=== PATIENT | female | born 1995 | race Caucasian/White ===

== ENCOUNTER 2016-10-15 10:21 | Emergency (ER) | payer OTHER ==
[~2016-10-15] VITALS: Ht 165.1 cm; Wt 72.5 kg
[~2016-10-15 10:21] MED LIST: CLIN1CAP6 PO; GENECHW PO
[2016-10-15 10:23] VITALS: BP 152/80; PULSE 102; RESP 24; TEMP 98.4; O2SAT 97
--- NOTE | 2016-10-15 11:04 | PD ---
HPI Chief Complaint: Educational Speech Language Clinician Problem/Complaint Time Seen by Provider: 10:57 Travel History International Travel<30 days: No Contact w/Intl Traveler<30days: No Traveled to known affect area: No History of Present Illness HPI 20-year-old female here for evaluation of vaginal bleeding and pelvic pain. Symptoms started this morning around 5:00. She describes heavy vaginal bleeding and intermittent pelvic cramping. She reports that she is on control, and does not believe she is . She has never been in the past. No history of bleeding disorder. PFSH Past Medical History Hx Anticoagulant Therapy: No Cardiovascular Problems: No Chemotherapy: No Cerebrovascular Accident: No Diabetes: No Diminished Hearing: No Respiratory: No Immunizations Current: Yes : 0 Past Surgical History Hysterectomy: No Social History Alcohol Use: No Tobacco Use: No Substance Use: No (PT DENIES) Allergies-Medications (Allergen,Severity, Reaction): Coded Allergies: Amoxicillin (Verified Allergy, Severe, Hives, 10/15/16) Reported Meds & Prescriptions Reported Meds & Active Scripts Active Review of Systems Except as stated in HPI: all other systems reviewed are Neg Physical Exam Narrative GENERAL: Well-developed, well-nourished, comfortable, no acute distress. SKIN: Focused skin assessment warm/dry. No pallor. HEAD: Atraumatic. Normocephalic. EYES: Pupils equal and round. No scleral icterus. No injection or drainage. ENT: Mucous membranes pink and moist. CARDIOVASCULAR: Regular rate and rhythm. RESPIRATORY: No accessory muscle use. Clear to auscultation. Breath sounds equal bilaterally. GASTROINTESTINAL: Abdomen soft, nondistended. Mild suprapubic tenderness without peritoneal signs. Rest of abdomen is soft and nontender. MUSCULOSKELETAL: No obvious deformities. No clubbing. No cyanosis. No edema. NEUROLOGICAL: Awake and alert. No obvious cranial nerve deficits. Motor grossly within normal limits. Normal speech. PSYCHIATRIC: Appropriate mood and affect; insight and judgment normal. Data Data Last Documented VS Vital Signs Date Time Temp Pulse Resp B/P Pulse Ox O2 Delivery O2 Flow Rate FiO2 10/15/16 14:35 89 18 131/67 99 Room Air 10/15/16 10:23 98.4 Orders Beta Hcg (Quant/Titer) (10/15/16 11:00) Complete Blood Count With Diff (10/15/16 11:00) Comprehensive Metabolic Panel (10/15/16 11:00) Type And Screen (10/15/16 11:00) Ed Urine Pregnancytest Poc (10/15/16 11:00) Prothrombin Time / Inr (Pt) (10/15/16 11:00) Act Partial Throm Time (Ptt) (10/15/16 11:00) Morphine Inj (Morphine Inj) (10/15/16 11:15) Ondansetron Inj (Zofran Inj) (10/15/16 11:15) Us Pelvis (Ques Pr/Ect)W Trans (10/15/16 ) Morphine Inj (Morphine Inj) (10/15/16 15:15) Labs Laboratory Tests Test 10/15/16 11:05 White Blood Count 10.6 TH/MM3 Red Blood Count 4.52 MIL/MM3 Hemoglobin 12.7 GM/DL Hematocrit 38.0 % Mean Corpuscular Volume 84.1 FL Mean Corpuscular Hemoglobin 28.2 PG Mean Corpuscular Hemoglobin 33.5 % Concent Red Cell Distribution Width 13.8 % Platelet Count 336 TH/MM3 Mean Platelet Volume 7.8 FL Neutrophils (%) (Auto) 66.7 % Lymphocytes (%) (Auto) 24.1 % Monocytes (%) (Auto) 8.0 % Eosinophils (%) (Auto) 0.8 % Basophils (%) (Auto) 0.4 % Neutrophils # (Auto) 7.0 TH/MM3 Lymphocytes # (Auto) 2.5 TH/MM3 Monocytes # (Auto) 0.8 TH/MM3 Eosinophils # (Auto) 0.1 TH/MM3 Basophils # (Auto) 0.0 TH/MM3 CBC Comment DIFF FINAL Differential Comment Prothrombin Time 10.3 SEC Prothromb Time International 0.9 RATIO Ratio Activated Partial 22.6 SEC Thromboplast Time Sodium Level 141 MEQ/L Potassium Level 3.5 MEQ/L Chloride Level 105 MEQ/L Carbon Dioxide Level 25.4 MEQ/L Anion Gap 11 MEQ/L Blood Urea Nitrogen 8 MG/DL Creatinine 0.65 MG/DL Estimat Glomerular Filtration 114 ML/MIN Rate Random Glucose 100 MG/DL Calcium Level 8.1 MG/DL Total Bilirubin 0.3 MG/DL Aspartate Amino Transf 15 U/L (AST/SGOT) Alanine Aminotransferase 18 U/L (ALT/SGPT) Alkaline Phosphatase 70 U/L Total Protein 6.8 GM/DL Albumin 3.2 GM/DL Human Chorionic Gonadotropin, 475 MIU/ML Quant Blood Type A POSITIVE Antibody Screen NEGATIVE Blood Bank Comment MDM Medical Decision Making Medical Screen Exam Complete: Yes Emergency Medical Condition: Yes Differential Diagnosis Spontaneous , ectopic , menstrual period, anemia, menorrhagia Narrative Course Vital signs reviewed. CBC is unremarkable. CMP is unremarkable. Coags are normal. Blood type is A+. Beta hCG is 475. Pelvic ultrasound: CONCLUSION: Cystic area likely representing gestational sac is seen in the lower uterine segment/cervix. No pole or yolk sac. Findings likely represent a failed intrauterine . Ovaries within normal limits. Patient was made aware of all findings. She is resting comfortably. She has an furniture upholstery mechanic with whom she can follow-up with as an outpatient. All questions were answered, and the patient was made aware that this is most likely a miscarriage. She is stable for discharge home with outpatient follow- up. She was informed on when to return to the emergency department. She verbalizes understanding and agreement with plan. Diagnosis Primary Impression: First trimester bleeding Referrals: [facility] 3 days Additional Instructions: Follow-up with your CLERICAL SUPERVISOR doctor this week. Return to the emergency department for worsening symptoms or any other concerns as discussed. Scripts Tramadol 50 Mg Tab50 Mg PO Q8H PRN (PAIN) #10 TAB Ref 0 Prov:Chris Sol MD 10/15/16 Disposition: 01 DISCHARGE HOME Condition: Stable Chris Sol MD October 15, 2016 11:04
[2016-10-15] MEDS ORDERED: ONDANSETRON HCL 4 MG/2 ML VIAL IV PUSH ONE (11:15)
[2016-10-15] MEDS ORDERED: MORPHINE SULFATE 4 MG/ML INJ IV PUSH ONE ×2 (11:15→15:15)
[2016-10-15 11:29] LABS: BASOPHIL % 0.4 % (0.0-2.0); EOSINOPHIL # 0.1 TH/MM3 (0-0.4); EOSINOPHIL % 0.8 % (0.0-4.0); HEMO FLAGS DIFF FINAL; LYMPH % 24.1 % (9.0-44.0); LYMPHOCYTE # 2.5 TH/MM3 (1.0-4.8); MEAN CELL VOLUME 84.1 FL (80.0-100.0); MEAN CORPUSCULAR HEMOGLOBIN 28.2 PG (27.0-34.0); MEAN CORPUSCULAR HGB CONC 33.5 % (32.0-36.0); NEUT % 66.7 % (16.0-70.0); PLATELET COUNT 336 TH/MM3 (150-450); RED BLOOD COUNT 4.52 MIL/MM3 (4.00-5.30); RED CELL DISTRIBUTION WIDTH 13.8 % (11.6-17.2); WHITE BLOOD COUNT 10.6 TH/MM3 (4.0-11.0)
[2016-10-15 11:34] LABS: APTT (PATIENT) 22.6 SEC (24.3-30.1); INTERNATIONAL NORMALIZED RATIO 0.9 RATIO; PROTHROMBIN TIME - PATIENT 10.3 SEC (9.8-11.6)
[2016-10-15 11:43] LABS: ALT (GPT) 18 U/L (10-53); ANION GAP 11 MEQ/L (5-15); AST (GOT) 15 U/L (15-37); BICARBONATE 25.4 MEQ/L (21.0-32.0); BLOOD UREA NITROGEN 8 MG/DL (7-18); CHLORIDE 105 MEQ/L (98-107); GLOMERULAR FILTRATION RATE 114 ML/MIN (>89); POTASSIUM 3.5 MEQ/L (3.5-5.1); SODIUM (NA) 141 MEQ/L (136-145)
[2016-10-15 11:47] LABS: ALKALINE PHOSPHATASE 70 U/L (45-117); BETA HCG QUANT 475 MIU/ML (0-5); TOTAL BILIRUBIN ADULT 0.3 MG/DL (0.2-1.0)
[2016-10-15 14:35] VITALS: BP 131/67; PULSE 89; RESP 18; O2SAT 99
--- NOTE | 2016-10-15 14:42 | RADRPT ---
EXAM DATE/TIME: 10/15/2016 13:01 [facility] COMPARISON: No previous studies available for comparison. INDICATIONS : Pelvic pain and heavy bleeding. LAB(S): Beta-hC MEDICAL HISTORY : . ADHD. Depression. Anxiety. Previous suicide attempt. SURGICAL HISTORY : None. ENCOUNTER: Initial ACUITY: 1 day PAIN SCORE: 6/10 LOCATION: Bilateral pelvis MEASUREMENTS: UTERUS: 10.2 x 4.6 x 5.0 cm ENDOMETRIAL STRIPE: 17 mm RIGHT OVARY: 2.2 x 1.3 x 1.3 cm LEFT OVARY: 2.9 x 2.3 x 2.4 cm FREE FLUID: Yes posterior cul de sac CROWN RUMP LENGTH: Nonvisualized = WKS DAYS FHR: Nonvisualized BPM FINDINGS: UTERUS: Cystic area indicating possible gestational sac is seen within the lower uterine segment/cervix. By m david sac diameter gestational age of would be estimated at 6 weeks 6 days. pole is not identifie d. Yolk sac is not identified. Heterogeneous endometrial stripe in the fundus. RIGHT OVARY: Ovary contains no mass or significant cystic lesion. LEFT OVARY: Ovary contains no mass or significant cystic lesion. MISCELLANEOUS: Trace free fluid. CONCLUSION: Cystic area likely representing gestational sac is seen in the lower uterine segment/cervix. No pole or yolk sac. Findings likely represent a failed intrauterine . Ovaries within normal l imits. Kyle Nuñez MD on October 15, 2016 at 14:38 Board Certified Radiologist. This report was verified electronically.
[2016-10-15] MEDS ORDERED: TRAM50TA PO (15:08)
[2016-10-15] MEDS ORDERED: HYDR1CAP30 PO (15:22)
[2016-10-15] MEDS ORDERED: GENECHW CHEW (15:22)
[2016-10-15] MEDS ORDERED: PAXI20TA PO (15:22)
== END 2016-10-15 15:37 | disposition home or self-care (01) ==
LOC: NEPD 10:21
DX: O20.9 Hemorrhage in early pregnancy, unspecified (principal); Z3A.00 Weeks of gestation of pregnancy not specified
CPT/HCPCS: 76700; 76817; 80053; 84702; 84703; 85025; 85610; 85730; 86850; 86900; 86901; 96374; 96375; 96376; 99284; J2270; J2405

== ENCOUNTER 2017-04-19 14:16 | Emergency (ER) | payer OTHER ==
[~2017-04-19 14:16] MED LIST changes: -CLIN1CAP6 PO; +GENECHW CHEW; -GENECHW PO; +HYDR1CAP30 PO; +PAXI20TA PO; +TRAM50TA PO
--- NOTE | 2017-04-19 15:50 | PD ---
HPI Chief Complaint cramping Date Seen: Apr 19, 2017 Time Seen: 14:38 Travel History International Travel<30 Days: No Contact w/Intl Traveler<30Days: No Known Affected Area: No History of Present Illness HPI Pt is a 21y/o @ 17.6wks. She has PNC with [facility]is Jimenez. She presents today for abdominal cramping. She reports that it started 3d ago and feels like menstrual cramps. She denies any LOF or VB. She is starting to feel FM. She has a h/o SAB earlier this year. She has not had an US at all this . Weeks Gestation: 17 Para: 0 : 2 Last Menstrual Period: Apr 19, 2017 History Past Medical History Narrative Medical sinus congestion with anxiety (no meds) Obstetric History Obstetric History SAB x1 Past Surgical History Surgical History: No Previous Surgery Family History Family History: Negative Social History Alcohol Use: No Tobacco Use: No Substance Abuse: No Allergies-Medications (Allergen,Severity, Reaction): Coded Allergies: amoxicillin (Unverified Allergy, Severe, Hives, 01/11/17) Home Meds Discontinued Reported Medications Norethindrone-Ethinyl Estradiol ([place] Fe 0.8/25) 0.8-25 Mg-Mcg Chew, 1 TAB CHEW DAILY for Control, #1 PACK 0 Refills 10/15/16 Hydroxyzine Pamoate (Hydroxyzine Pamoate) 25 Mg Cap, 25 MG PO TID Y for ANXIETY , CAP 0 Refills 10/15/16 Paroxetine (Paxil) 20 Mg Tab, 20 MG PO DAILY, #30 TAB 0 Refills 10/15/16 Discontinued Scripts Tramadol (Tramadol) 50 Mg Tab, 50 MG PO Q8H Y for PAIN, #10 TAB 0 Refills Prov:Chris Sol MD 10/15/16 Review of Systems Except as stated in HPI: all other systems reviewed are Neg Physical Exam Narrative General: well developed, well nourished, no acute distress HEENT: normocephalic atraumatic, extraocular movements intact, neck supple Abdomen: soft, gravid, nontender, nondistended Extremities: full range of motion, no pedal edema, no calf tenderness Skin: normal coloration, no rashes, no suspicious skin lesions noted Neurologic: cranial nerves 2-12 grossly intact, normal muscle tone, normal gait Psychiatric: normal mood and affect, appropriate FHTs: present on US UA: negative for LE and nitrites Data Data Vital Signs Reviewed: Yes Orders Orders Vital Signs (Adult) .ON ADMISSION (04/19/17 14:46) ^ Labor Status (04/19/17 14:46) Urinalysis - C+S If Indicated (04/19/17 14:46) Us Ob Pelvis >14 Wks Fetus (04/19/17 ) MDM Plan 21y/o @ 17.6wks by LMP with cramping. -- US (including anatomy) ordered and WNL -- UA negative for UTI Dispo: stable for d/c home Diagnosis Diagnosis: Primary Impression: 17 weeks gestation of Additional Impression: Abdominal cramping complicating Susi Scott MD Apr 19, 2017 15:50
[2017-04-19 16:51] LABS: BLOOD, URINE NEG (NEG); COMMENT (UR) CULT NOT INDICATED; CULTURE IF INDICATED CULT NOT INDICATED; GLUCOSE,URINE NEG (NEG); KETONE, URINE 80 mg/dL (NEG); MUCUS URINE FEW /lpf (OCC); NITRITE,URINE NEG (NEG); SQUAMOUS EPITHELIAL CELL URINE 4 /hpf (0-5); URINE COLOR YELLOW (YELLW/STRAW)
== END 2017-04-19 16:12 | disposition home or self-care (01) ==
LOC: HOBED 14:16
DX: O26.892 Other specified pregnancy related conditions, second trimester (principal); R10.9 Unspecified abdominal pain; Z3A.17 17 weeks gestation of pregnancy
CPT/HCPCS: 76805; 81001; 99284

== ENCOUNTER 2017-09-20 09:31 | Inpatient (IN) | payer OTHER ==
[~2017-09-20] VITALS: Ht 165.1 cm; Wt 93.0 kg
[2017-09-20] VITALS (70 sets, daily range): BP systolic 105–158; BP diastolic 52–87; PULSE 76–155; RESP 18; TEMP 98.4–99.1
[2017-09-20] MEDS ORDERED: LACTATED RINGER'S 1000 ML INJ 1,000 ML IV PRN (09:57)
[2017-09-20] MEDS ORDERED: LIDOCAINE HCL 1% 50 ML VIAL INFIL PRN (10:00)
[2017-09-20] MEDS ORDERED: MINERAL OIL 10 ML VIAL TOPICAL PRN (10:00)
[2017-09-20] MEDS ORDERED: SODIUM CHLORID 0.9% 500 ML INJ 500 ML IV PRN (10:00)
[2017-09-20] MEDS ORDERED: OXYTOCIN 30 UNITS-500ML PREMIX 500 ML IV ONE (10:00)
[2017-09-20] MEDS ORDERED: LIDOCAINE HCL 1% 50 ML VIAL I-DERMAL PRN (10:00)
[2017-09-20] MEDS ORDERED: CITRIC ACID-SODIUM CITRATE LIQ 30 ML UDC PO SCH (10:00)
--- NOTE | 2017-09-20 10:01 | PD ---
HPI Travel History International Travel<30 Days: No Contact w/Intl Traveler<30Days: No History of Present Illness HPI 21-year-old female G2 0010 at 39 and 6 weeks presents to the OB ED for leakage of fluid. She is a patient of [facility]is Jimenez. Patient reports that around 6:15 AM this morning she felt a gush of fluid. She felt another gush of fluid around 830 this morning. She reports the fluid is clear and [id number]. She also reports that she started having contractions around 7 AM this morning. She states that the contractions have been 2-1/2 minutes apart and last for 30 seconds. Also states that the contractions are getting intense and closer together. She reports that she is been having watery diarrhea for the last 2 weeks but she associates this with her anxiety. Endorses good movement. she denies vaginal bleeding, vaginal discharge, fevers, chest pain, shortness of breath. History Past Medical History Narrative Medical Anxiety Depression OCD ADHD Obstetric History Obstetric History 1 miscarriage Past Surgical History Surgical History: No Previous Surgery Family History Family History: Negative Social History Alcohol Use: No Tobacco Use: No Substance Abuse: No Allergies-Medications (Allergen,Severity, Reaction): Coded Allergies: amoxicillin (Unverified Allergy, Severe, Hives, 01/11/17) Review of Systems Except as stated in HPI: all other systems reviewed are Neg Physical Exam Narrative GENERAL: Well-nourished, well-developed patient. SKIN: Warm and dry. HEAD: Normocephalic and atraumatic. EYES: No scleral icterus. No injection or drainage. ENT: No nasal drainage noted. Mucous membranes pink. Airway patent. NECK: Supple, trachea midline. No JVD. CARDIOVASCULAR: Regular rate and rhythm without murmurs, gallops, or rubs. RESPIRATORY: Breath sounds equal bilaterally. No accessory muscle use. ABDOMEN/GI: Abdomen soft, non-tender, bowel sounds present, no rebound, no guarding GENITOURINARY: Cervix: -Posterior Dilatation: 4 Effacement: 80 Station: -2 Presentation: Vertex Membranes: Ruptured Uterine Contractions: Every 2-3 minutes FHT's: Category: 1 Baseline: 130 Reactive: Yes Variability: Moderate Decels: No EXTREMITIES: No cyanosis or edema. BACK: Nontender without obvious deformity. NEUROLOGICAL: Awake and alert. Motor and sensory grossly within normal limits. Five out of 5 muscle strength in all muscle groups. Normal speech. Data Data Orders Orders Vital Signs (Adult) .ON ADMISSION (09/20/17 09:45) ^ Labor Status (09/20/17 09:45) Heart (09/20/17 09:45) ^ Non Stress Test (09/20/17 09:45) ^ Hydration (09/20/17 09:45) MDM Plan 21-year-old female G2 0010 at 39 and 6 weeks presents to the OB ED for leakage of fluid. She is a patient of [facility]is Jimenez. -Intrauterine , category 1, reassuring GBS status unknown, will obtain records Admit to L&D sdw Dr. Valdes and Cady Schulz MD R1 Sep 20, 2017 10:01
--- NOTE | 2017-09-20 10:14 | HHI.HP ---
History & Physical H&P OB ED Note (Detail) Patient Name: Dodie Perez Unit Number: [id number] Date of : 1995 Patient Status: Registered Emergency Room Attending Doctor: Zak Lee Jr., MD HPI HPI Travel History International Travel<30 Days: No Contact w/Intl Traveler<30Days: No History of Present Illness HPI 21-year-old female G2 0010 at 39 and 6 weeks presents to the OB ED for leakage of fluid. She is a patient of Charis Jimenez. Patient reports that around 6:15 AM this morning she felt a gush of fluid. She felt another gush of fluid around 830 this morning. She reports the fluid is clear and [id number]. She also reports that she started having contractions around 7 AM this morning. She states that the contractions have been 2-1/2 minutes apart and last for 30 seconds. Also states that the contractions are getting intense and closer together. She reports that she is been having watery diarrhea for the last 2 weeks but she associates this with her anxiety. Endorses good movement. she denies vaginal bleeding, vaginal discharge, fevers, chest pain, shortness of breath. History (Limited) History Past Medical History Narrative Medical Anxiety Depression OCD ADHD Obstetric History Obstetric History 1 miscarriage Past Surgical History Surgical History: No Previous Surgery Family History Family History: Negative Social History Alcohol Use: No Tobacco Use: No Substance Abuse: No Allergies-Medications Allergies-Medications (Allergen,Severity, Reaction): Coded Allergies: amoxicillin (Unverified Allergy, Severe, Hives, 01/11/17) ROS Review of Systems Except as stated in HPI: all other systems reviewed are Neg Physical Exam Physical Exam Narrative GENERAL: Well-nourished, well-developed patient. SKIN: Warm and dry. HEAD: Normocephalic and atraumatic. EYES: No scleral icterus. No injection or drainage. ENT: No nasal drainage noted. Mucous membranes pink. Airway patent. NECK: Supple, trachea midline. No JVD. CARDIOVASCULAR: Regular rate and rhythm without murmurs, gallops, or rubs. RESPIRATORY: Breath sounds equal bilaterally. No accessory muscle use. ABDOMEN/GI: Abdomen soft, non-tender, bowel sounds present, no rebound, no guarding GENITOURINARY: Cervix: -Posterior Dilatation: 4 Effacement: 80 Station: -2 Presentation: Vertex Membranes: Ruptured Uterine Contractions: Every 2-3 minutes FHT's: Category: 1 Baseline: 130 Reactive: Yes Variability: Moderate Decels: No EXTREMITIES: No cyanosis or edema. BACK: Nontender without obvious deformity. NEUROLOGICAL: Awake and alert. Motor and sensory grossly within normal limits. Five out of 5 muscle strength in all muscle groups. Normal speech. Data Data Data Orders Orders Vital Signs (Adult) .ON ADMISSION (09/20/17 09:45) ^ Labor Status (09/20/17 09:45) Heart (09/20/17 09:45) ^ Non Stress Test (09/20/17 09:45) ^ Hydration (09/20/17 09:45) MDM MDM Plan 21-year-old female G2 0010 at 39 and 6 weeks in labor. She is a patient of Charis Jimenez. -Intrauterine , category 1, reassuring -s/p SROM -GBS negative -continue expectant management sdw Dr. Valdes and Cady Schulz MD R1 Sep 20, 2017 10:01 Cady Corbett MD R1 Sep 20, 2017 10:14
[2017-09-20] MEDS ORDERED: SODIUM CHLOR 0.9% 1000 ML INJ 1,000 ML IV PRN (10:17)
[2017-09-20] MEDS ORDERED: ONDANSETRON HCL 4 MG/2 ML VIAL ONE (10:45)
[2017-09-20] MEDS: LACTATED RINGER'S 1000 ML INJ 1,000 ML IV SCH ×2 (10:47→16:37)
[2017-09-20] MEDS ORDERED: LIDOCAINE 2%/EPINEPHrine PF 1:200,000 20ML SDV ONE (11:27)
[2017-09-20] MEDS ORDERED: LIDOCAINE HCL 1% PF 5 ML AMPULE ONE (11:27)
[2017-09-20] MEDS ORDERED: fentaNYL 2MCG-BUPIV 0.125% INJ 100 ML ONE (11:31)
[2017-09-20] MEDS ORDERED: ePHEDrine/NS 25 MG/5 ML SYRINGE ONE (11:32)
[2017-09-20 11:47] LABS: AUTOMATED NEUTROPHIL # 12.9 TH/MM3 (1.8-7.7); BASOPHIL % 0.3 % (0.0-2.0); EOSINOPHIL # 0.1 TH/MM3 (0-0.4); EOSINOPHIL % 0.3 % (0.0-4.0); HEMATOCRIT 38.6 % (35.0-46.0); LYMPH % 11.5 % (9.0-44.0); LYMPHOCYTE # 1.8 TH/MM3 (1.0-4.8); MEAN CELL VOLUME 85.1 FL (80.0-100.0); MEAN CORPUSCULAR HEMOGLOBIN 28.6 PG (27.0-34.0); MEAN CORPUSCULAR HGB CONC 33.6 % (32.0-36.0); MEAN PLATELET VOLUME 8.9 FL (7.0-11.0); MONO % 6.8 % (0.0-8.0); MONOCYTE # 1.1 TH/MM3 (0-0.9); NEUT % 81.1 % (16.0-70.0); PLATELET COUNT 312 TH/MM3 (150-450); RED BLOOD COUNT 4.54 MIL/MM3 (4.00-5.30); RED CELL DISTRIBUTION WIDTH 13.9 % (11.6-17.2); WHITE BLOOD COUNT 15.9 TH/MM3 (4.0-11.0)
[2017-09-20 11:48] LABS: BILIRUBIN, URINE NEG (NEG); BLOOD, URINE MOD (NEG); GLUCOSE,URINE NEG (NEG); KETONE, URINE NEG (NEG); MUCUS URINE MANY /lpf (OCC); NITRITE,URINE NEG (NEG); PH, URINE 5.5 (5.0-8.5); SQUAMOUS EPITHELIAL CELL URINE 20 /hpf (0-5); URINE COLOR YELLOW (YELLW/STRAW); URINE LEUKOCYTE ESTERASE MOD (NEG)
[2017-09-20] MEDS ORDERED: NO SYSTEM NARCOTICS PRN (13:45)
[2017-09-20] MEDS ORDERED: DO NOT ADMINISTER ANTICOAGULANTS PRN (13:45)
[2017-09-20] MEDS ORDERED: fentaNYL 2MCG-BUPIV 0.125% 100 ML EPIDURAL PRN (13:45)
[2017-09-20] MEDS ORDERED: ePHEDrine/NS 25 MG/5 ML SYRINGE IV PUSH PRN (13:45)
[2017-09-20] MEDS ORDERED: MEASLES, MUMPS, RUBELLA VACCINE 0.5 ML VIAL SQ ONE (16:00)
[2017-09-20] MEDS ORDERED: DIPHTH/TETANUS/ACEL PERTUSSIS (BOOSTER) 0.5 ML VIAL/PFS IM ONE (16:00)
[2017-09-20] MEDS ORDERED: OXYTOCIN 30 UNITS-500ML PREMIX 500 ML IV PRN (16:15)
--- NOTE | 2017-09-20 19:50 | HHI.PR ---
Subjective Remarks OB[facility] I was previously in to see patient shortly after initiation of oxytocin. At that time we discussed the risks of vaginal delivery as well as the risks and indications of delivery. The patient is amenable to whatever is safest for her and the . At this time the patient was progressed to complete the dilated and 0 station. She is comfortable with her epidural although feels some pelvic pressure. Her vital signs are stable. The heart rate tracing is in the 170s with moderate long-term variability and no decelerations noted. The baseline has been tachycardic for the last 30 minutes. The patient is receiving an IV fluid bolus. GBS negative. The patient does have a history of anxiety and is feeling anxious at this time. Will continue monitoring and begin pushing. The patient has labored down for nearly an hour and will commence maternal expulsive efforts. Objective Vital Signs Date Time Temp Pulse Resp B/P (MAP) Pulse Ox O2 Delivery O2 Flow Rate FiO2 09/20/17 19:09 117 144/87 (106) 09/20/17 19:08 98.4 09/20/17 18:20 87 135/71 (92) 09/20/17 18:19 18 09/20/17 18:19 98.7 09/20/17 17:25 18 09/20/17 17:24 91 141/68 (92) 09/20/17 17:01 78 123/52 (75) 09/20/17 16:38 80 116/65 (82) 09/20/17 16:19 98.7 09/20/17 16:07 18 09/20/17 16:00 82 124/80 (95) 09/20/17 15:30 143 122/74 (90) 09/20/17 13:45 84 119/82 (94) 09/20/17 13:31 86 105/67 (80) 09/20/17 13:16 91 121/56 (77) 09/20/17 13:01 99 123/70 (87) 09/20/17 12:46 94 107/71 (83) 09/20/17 12:41 88 119/65 (83) 09/20/17 12:40 78 09/20/17 12:36 86 116/55 (75) 09/20/17 12:35 81 09/20/17 12:31 82 128/58 (81) 09/20/17 12:30 79 09/20/17 12:25 91 09/20/17 12:25 86 127/74 (91) 09/20/17 12:21 81 118/85 (96) 09/20/17 12:20 83 09/20/17 12:19 98.7 18 09/20/17 12:15 87 09/20/17 12:15 94 140/67 (91) 09/20/17 12:11 91 134/79 (97) 09/20/17 12:10 94 09/20/17 12:05 89 09/20/17 12:05 93 142/67 (92) 09/20/17 12:00 90 140/71 (94) 09/20/17 12:00 93 09/20/17 11:56 84 141/80 (100) 09/20/17 11:55 90 09/20/17 11:53 83 136/83 (100) 09/20/17 11:50 86 09/20/17 11:45 83 09/20/17 11:40 77 09/20/17 11:35 92 09/20/17 11:25 88 09/20/17 11:20 87 09/20/17 11:15 88 09/20/17 11:10 85 09/20/17 11:05 85 09/20/17 11:00 89 09/20/17 09:57 18 09/20/17 09:53 101 131/78 (95) Result Diagram: 09/20/17 1040 Ashley Valdes MD Sep 20, 2017 19:50
[2017-09-20] MEDS ORDERED: LIDOCAINE HCL 1% PF 30 ML VIAL ONE (21:14)
--- NOTE | 2017-09-20 21:46 | PD.OB.DELI ---
Anesthesia: Epidural Episiotomy: Right mediolateral Vaginal Delivery: Normal Presentation: Occiput anterior Nuchal Cord: None Shoulder Dystocia: Suprapubic pressure given, Khloe maneuver done, Wood's screw maneuver done, Other (Jain's maneuver done; suprapubic pressure reapplied with successful dislodging of the anterior shoulder) : Male Delivery date: Sep 20, 2017 Delivery time: 21:10 One Minute : 8 Five Minute : 9 Weight: 3585g Placenta: Spontaneous delivery Laceration: Episiotomy Repair: Chromic running, Vicryl interrupted Estimated blood loss: 200 Ashley Valdes MD Sep 20, 2017 21:46
--- NOTE | 2017-09-20 21:55 | HHI.PR ---
Subjective Remarks OB[facility] The patient progressed to complete, complete, and +1 station and commenced spontaneous maternal expulsive efforts with delivery in 1 hour. Mother proceeded to expel the head unassisted in the OA position outside of a contraction but head did not deliver entirely. The patient was placed in McRobert's position. She was instructed to not push and suprapubic pressure was applied. No nuchal cord was noted. No excessive downward traction was applied, no greater than usual head and neck traction was applied, no excessive neck rotation was applied, and no fundal pressure was applied. Jain's and Wood 's Corkscrew maneuver were performed, and an attempt was made to deliver the posterior arm. A right mediolateral episiotomy was performed. Suprapubic pressure was reapplied with successful dislodging of the anterior shoulder and subsequent atraumatic delivery of the shoulder and remainder of the . Total time from head to complete delivery of was 1 minute and 25 seconds. The was placed on the maternal abdomen and stimulated with Apgars 8/9. The cord was doubly clamped and cut. The appeared to be without injury and was moving both arms well with apparent normal tone. A cord segment was obtained for cord pH and cord blood was obtained for the nursery. The placenta was removed spontaneously and appeared intact. The right mediolateral episiotomy was repaired in the typical manner with 3-0 chromic. 2-0 vicryl was used to ensure excellent cosmesis. The was examined closely and is without injury and moving both arms normally and both arms have good/normal tone. The mother and are both doing well. The mother and father were counseled about the events of the shoulder dystocia and the resulting successful delivery of the without injury. We discussed that she has a higher chance of a shoulder dystocia in a subsequent delivery and as such, a delivery may be recommended. The parents were appreciative of my care and thanked me for delivering the safely. Objective Vital Signs Date Time Temp Pulse Resp B/P (MAP) Pulse Ox O2 Delivery O2 Flow Rate FiO2 09/20/17 21:25 99 09/20/17 21:20 108 09/20/17 21:15 109 09/20/17 21:10 155 09/20/17 21:05 119 09/20/17 21:00 132 09/20/17 20:55 113 09/20/17 20:50 103 09/20/17 20:45 105 09/20/17 19:09 117 144/87 (106) 09/20/17 19:08 98.4 09/20/17 18:20 87 135/71 (92) 09/20/17 18:19 18 09/20/17 18:19 98.7 09/20/17 17:25 18 09/20/17 17:24 91 141/68 (92) 09/20/17 17:01 78 123/52 (75) 09/20/17 16:38 80 116/65 (82) 09/20/17 16:19 98.7 09/20/17 16:07 18 09/20/17 16:00 82 124/80 (95) 09/20/17 15:30 143 122/74 (90) 09/20/17 13:45 84 119/82 (94) 09/20/17 13:31 86 105/67 (80) 09/20/17 13:16 91 121/56 (77) 09/20/17 13:01 99 123/70 (87) 09/20/17 12:46 94 107/71 (83) 09/20/17 12:41 88 119/65 (83) 09/20/17 12:40 78 09/20/17 12:36 86 116/55 (75) 09/20/17 12:35 81 09/20/17 12:31 82 128/58 (81) 09/20/17 12:30 79 09/20/17 12:25 91 09/20/17 12:25 86 127/74 (91) 09/20/17 12:21 81 118/85 (96) 09/20/17 12:20 83 09/20/17 12:19 98.7 18 09/20/17 12:15 87 09/20/17 12:15 94 140/67 (91) 09/20/17 12:11 91 134/79 (97) 09/20/17 12:10 94 09/20/17 12:05 89 09/20/17 12:05 93 142/67 (92) 09/20/17 12:00 90 140/71 (94) 09/20/17 12:00 93 09/20/17 11:56 84 141/80 (100) 09/20/17 11:55 90 09/20/17 11:53 83 136/83 (100) 09/20/17 11:50 86 09/20/17 11:45 83 09/20/17 11:40 77 09/20/17 11:35 92 09/20/17 11:25 88 09/20/17 11:20 87 09/20/17 11:15 88 09/20/17 11:10 85 09/20/17 11:05 85 09/20/17 11:00 89 09/20/17 09:57 18 09/20/17 09:53 101 131/78 (95) Result Diagram: 09/20/17 1040 Ashley Valdes MD Sep 20, 2017 21:55
[2017-09-20] MEDS ORDERED: ZOLPIDEM TARTRATE 5 MG TAB PO PRN (23:30)
[2017-09-20] MEDS ORDERED: ACETAMINOPHEN 325 MG TAB PO PRN (23:30)
[2017-09-20] MEDS ORDERED: SODIUM CHLORIDE 0.9% FLUSH 10 ML FLUSH IV FLUSH PRN (23:30)
[2017-09-20] MEDS ORDERED: ALUMINUM/MAGNESIUM/SIMETH 30 ML CUP PO PRN (23:30)
[2017-09-20] MEDS ORDERED: oxyCODONE/ACETAMINOPHEN 5 MG/325 MG TAB PO PRN (23:30)
[2017-09-20] MEDS ORDERED: BENZOCAINE 20% TOPICAL SPRAY 60 ML CAN TOPICAL PRN (23:30)
[2017-09-20] MEDS ORDERED: WITCH HAZEL 50%/GLYCERIN 12.5% 40 PAD JAR TOPICAL PRN (23:30)
[2017-09-20] MEDS ORDERED: ONDANSETRON ODT 4 MG TAB PO PRN (23:30)
[2017-09-20] MEDS ORDERED: OXYTOCIN 30 UNITS-500ML PREMIX 500 ML IV SCH (23:30)
[2017-09-20] MEDS: DOCUSATE SODIUM 50 MG/SENNA 8.6 MG TAB PO PRN (23:42)
[2017-09-20] MEDS: IBUPROFEN 800 MG TAB PO PRN (23:42)
[2017-09-21] MEDS: oxyCODONE/ACETAMINOPHEN 5 MG/325 MG TAB PO PRN ×4 (05:13→20:27)
[2017-09-21 08:15] VITALS: BP 134/68; PULSE 81; RESP 20; TEMP 97.7
--- NOTE | 2017-09-21 08:49 | HHI.OB ---
Subjective Post Day: 1 Remarks Patient seen and examined this morning. AFVSS overnight. day #1. Patient states her pain has been well-controlled. Decreased lochia. Denies dysuria. No breast tenderness. She is feeding the baby via breast. Appetite good. No nausea or vomiting. Ambulating well without issues. Denies fevers, chest pain, calf pain, shortness of breath, or cough. She otherwise has no other complaints or concerns this morning. Objective Vitals/I&O Vital Signs Date Time Temp Pulse Resp B/P (MAP) Pulse Ox O2 Delivery O2 Flow Rate FiO2 09/20/17 23:18 98.9 83 18 133/65 (87) 09/20/17 22:30 18 09/20/17 22:15 76 137/71 (93) 09/20/17 22:01 81 132/72 (92) 09/20/17 21:56 18 09/20/17 21:55 88 09/20/17 21:50 100 09/20/17 21:46 99 158/75 (102) 09/20/17 21:45 104 09/20/17 21:42 98 156/72 (100) 09/20/17 21:41 99.1 09/20/17 21:40 98 09/20/17 21:35 97 09/20/17 21:30 104 09/20/17 21:25 99 09/20/17 21:20 108 09/20/17 21:15 109 09/20/17 21:10 155 09/20/17 21:05 119 09/20/17 21:00 132 09/20/17 20:55 113 09/20/17 20:50 103 09/20/17 20:45 105 09/20/17 19:09 117 144/87 (106) 09/20/17 19:08 98.4 09/20/17 18:20 87 135/71 (92) 09/20/17 18:19 18 09/20/17 18:19 98.7 09/20/17 17:25 18 09/20/17 17:24 91 141/68 (92) 09/20/17 17:01 78 123/52 (75) 09/20/17 16:38 80 116/65 (82) 09/20/17 16:19 98.7 09/20/17 16:07 18 4/25/18 16:00 82 124/80 (95) 09/20/17 15:30 143 122/74 (90) 09/20/17 13:45 84 119/82 (94) 09/20/17 13:31 86 105/67 (80) 09/20/17 13:16 91 121/56 (77) 09/20/17 13:01 99 123/70 (87) 09/20/17 12:46 94 107/71 (83) 09/20/17 12:41 88 119/65 (83) 09/20/17 12:40 78 09/20/17 12:36 86 116/55 (75) 09/20/17 12:35 81 09/20/17 12:31 82 128/58 (81) 09/20/17 12:30 79 09/20/17 12:25 91 09/20/17 12:25 86 127/74 (91) 09/20/17 12:21 81 118/85 (96) 09/20/17 12:20 83 09/20/17 12:19 98.7 18 09/20/17 12:15 87 09/20/17 12:15 94 140/67 (91) 09/20/17 12:11 91 134/79 (97) 09/20/17 12:10 94 09/20/17 12:05 89 09/20/17 12:05 93 142/67 (92) 09/20/17 12:00 90 140/71 (94) 09/20/17 12:00 93 09/20/17 11:56 84 141/80 (100) 09/20/17 11:55 90 09/20/17 11:53 83 136/83 (100) 09/20/17 11:50 86 09/20/17 11:45 83 09/20/17 11:40 77 09/20/17 11:35 92 09/20/17 11:25 88 09/20/17 11:20 87 09/20/17 11:15 88 09/20/17 11:10 85 09/20/17 11:05 85 09/20/17 11:00 89 09/20/17 09:57 18 09/20/17 09:53 101 131/78 (95) Objective Remarks GENERAL: Well-nourished, well-developed patient. CARDIOVASCULAR: Regular rate and rhythm without murmurs, gallops, or rubs. RESPIRATORY: Breath sounds equal bilaterally. No accessory muscle use. ABDOMEN/GI: Abdomen soft, non-tender. Fundus: Firm, non-tender at umbilicus. GENITOURINARY: Light to moderate bleeding. EXTREMITIES: No cyanosis or edema, non-tender, without signs of DVT. Medications and IVs Current Medications Medications (Trade) Dose Ordered Sig/Adrian Route Start Time Stop Time Status Last Admin (NS Flush) 2 ml BID IV FLUSH 09/21/17 09:00 (NS Flush) 2 ml UNSCH PRN IV FLUSH 09/20/17 23:30 (Tylenol) 650 mg Q4H PRN PO 09/20/17 23:30 09/20/17 23:42 (Motrin) 800 mg Q8H PRN PO 09/20/17 23:30 09/20/17 23:42 (Percocet 5-325 Mg) 1 tab Q4H PRN PO 09/20/17 23:30 09/21/17 05:13 (Percocet 5-325 Mg) 2 tab Q4H PRN PO 09/20/17 23:30 (Americaine 20% Top Spr) 1 spray Q4H PRN TOPICAL 09/20/17 23:30 09/20/17 23:43 (Tucks Pads) 1 applic QID PRN TOPICAL 09/20/17 23:30 09/20/17 23:42 (Sheila-Colace) 2 tab Q12H PRN PO 09/20/17 23:30 09/20/17 23:42 (Ambien) 5 mg HS PRN PO 09/20/17 23:30 (Mag-Al Plus Susp Liq) 15 ml Q8H PRN PO 09/20/17 23:30 (Zofran Odt) 4 mg Q6H PRN PO 09/20/17 23:30 Assessment/Plan Problem List: (1) care following vaginal delivery ICD Codes: Z39.2 - Encounter for routine follow-up Assessment and Plan 21 year old now PPD#1. 1. Care - AFVSS - Encouraged OOB, as tolerated - Motrin or Percocet prn pain - Advised pelvic rest x 6 weeks - Continue - Contraception: Discussed with patient this AM, patient desiring OCPs - Instructed patient to f/u with OB provider within 6 weeks for continued care and contraception following hospital discharge [facility] OB Hospitalist Discharge Planning Anticipate discharge 09/22 pending stable clinical course Rya Torres MD R2 Sep 21, 2017 08:49
[2017-09-21] MEDS ORDERED: SODIUM CHLORIDE 0.9% FLUSH 10 ML FLUSH IV FLUSH SCH (09:00)
[2017-09-21] MEDS: IBUPROFEN 800 MG TAB PO PRN ×2 (09:44→20:27)
[2017-09-21] MEDS: DOCUSATE SODIUM 50 MG/SENNA 8.6 MG TAB PO PRN (16:06)
[2017-09-21 20:00] VITALS: BP 112/65; PULSE 70
[2017-09-21 20:01] VITALS: RESP 16
[2017-09-22] MEDS: IBUPROFEN 800 MG TAB PO PRN ×2 (05:13→14:49)
[2017-09-22] MEDS: oxyCODONE/ACETAMINOPHEN 5 MG/325 MG TAB PO PRN ×3 (05:13→14:49)
[2017-09-22] MEDS: DOCUSATE SODIUM 50 MG/SENNA 8.6 MG TAB PO PRN (05:16)
--- NOTE | 2017-09-22 07:26 | HHI.OB ---
Subjective Post Day: 2 Remarks Patient seen and examined this morning. AFVSS overnight. day #2. Patient states her pain has been well-controlled with her current regimen. Decreased lochia. Denies dysuria. No breast tenderness. She is feeding the baby via breast. Appetite good, without nausea or vomiting. Ambulating well. Denies fevers, chest pain, calf pain, shortness of breath, or cough. She is eager to meet with psychiatry this morning. Objective Vitals/I&O Vital Signs Date Time Temp Pulse Resp B/P (MAP) Pulse Ox O2 Delivery O2 Flow Rate FiO2 09/21/17 20:01 16 09/21/17 20:00 70 112/65 (81) 09/21/17 08:15 97.7 81 20 134/68 (90) Objective Remarks GENERAL: Well-nourished, well-developed patient. CARDIOVASCULAR: Regular rate and rhythm without murmurs, gallops, or rubs. RESPIRATORY: Breath sounds equal bilaterally. No accessory muscle use. ABDOMEN/GI: Abdomen soft, non-tender. Fundus: Firm, non-tender at umbilicus. GENITOURINARY: Light to moderate bleeding. EXTREMITIES: No cyanosis or edema, non-tender, without signs of DVT. Medications and IVs Current Medications Medications (Trade) Dose Ordered Sig/Adrian Route Start Time Stop Time Status Last Admin (NS Flush) 2 ml BID IV FLUSH 09/21/17 09:00 (NS Flush) 2 ml UNSCH PRN IV FLUSH 09/20/17 23:30 (Tylenol) 650 mg Q4H PRN PO 09/20/17 23:30 09/20/17 23:42 (Motrin) 800 mg Q8H PRN PO 09/20/17 23:30 09/22/17 05:13 (Percocet 5-325 Mg) 1 tab Q4H PRN PO 09/20/17 23:30 09/22/17 05:13 (Percocet 5-325 Mg) 2 tab Q4H PRN PO 09/20/17 23:30 (Americaine 20% Top Spr) 1 spray Q4H PRN TOPICAL 09/20/17 23:30 09/20/17 23:43 (Tucks Pads) 1 applic QID PRN TOPICAL 4/25/18 23:30 09/20/17 23:42 (Sheila-Colace) 2 tab Q12H PRN PO 09/20/17 23:30 09/22/17 05:16 (Ambien) 5 mg HS PRN PO 09/20/17 23:30 (Mag-Al Plus Susp Liq) 15 ml Q8H PRN PO 09/20/17 23:30 (Zofran Odt) 4 mg Q6H PRN PO 09/20/17 23:30 Assessment/Plan Problem List: (1) care following vaginal delivery ICD Codes: Z39.2 - Encounter for routine follow-up Assessment and Plan 21 year old now PPD#2. 1. Care - AFVSS - Encouraged OOB, as tolerated - Motrin or Percocet prn pain - Advised pelvic rest x 6 weeks - Continue - Depression: Psychiatry consulted to meet with patient - Contraception: Discussed with patient this AM, patient desiring OCPs - Instructed patient to f/u with OB provider within 6 weeks for continued care and contraception following hospital discharge [facility] OB Hospitalist Discharge Planning Anticipate discharge today following psychiatry consultation and pending stable clinical course Ray Torrse MD R2 Sep 22, 2017 07:26
[2017-09-22 08:15] VITALS: BP 129/76; PULSE 72; RESP 20; TEMP 97.9
[2017-09-22] MEDS ORDERED: IBUP1TAB7 PO ×2 (08:23→13:17)
[2017-09-22] MEDS ORDERED: PERI PO (08:23)
[2017-09-22] MEDS ORDERED: OXYC1TAB63 PO ×2 (08:23→13:04)
--- NOTE | 2017-09-22 09:58 | HHI.DCPOC ---
Discharge Care Plan Diagnosis: (1) care following vaginal delivery Report Symptoms to Your Doctor -Temperature above 100.5 degrees -Redness, of incision or excessive or foul smelling drainage -Unusual pain or calf pain -Increased vaginal bleeding -Painful or difficulty urinating -Feelings of extreme sadness or anxiety after 2 weeks Goals to Promote Your Health * To maintain your health at the optimal level, follow up with your primary OB provider and primary care physician within 6 weeks after hospital discharge. Directions to Meet Your Goals Take your medications as prescribed Follow your dietary instruction Follow activity as directed Ensure plenty of rest for recovery Drink fluids for hydration Keep your appointments as scheduled Take your immunizations and boosters as scheduled If your symptoms worsen call your PCP, if no PCP go to Urgent Care Center or Emergency Room Smoking is Dangerous to Your Health. Avoid second hand smoke Call the 24-hour crisis hotline for domestic abuse at Ray Torres MD R2 Sep 22, 2017 09:58
[2017-09-22] MEDS ORDERED: SERTRALINE HCL 50 MG TAB PO SCH (12:45)
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
[2017-09-22] MEDS ORDERED: CLON0.5T PO (13:04)
[2017-09-22] MEDS ORDERED: ZOLO50TA PO (13:04)
[2017-09-22] MEDS ORDERED: clonazePAM 0.5 MG TAB PO SCH (21:00)
== END 2017-09-22 15:52 | disposition home or self-care (01) | DRG 775 ==
LOC: HOBED 09:31 → H2EB 10:05 → H1EA 22:59
PROVIDERS: ADMIT Obstetrics & Gynecology; ATTEND Obstetrics & Gynecology
PROC: 0W8NXZZ Division of Female Perineum, External Approach (ICD-10-PCS; principal; 2017-09-20)
PROC: 10E0XZZ Delivery of Products of Conception, External Approach (ICD-10-PCS; 2017-09-20)
DX: O66.0 Obstructed labor due to shoulder dystocia (principal); F33.1 Major depressive disorder, recurrent, moderate; O99.344 Other mental disorders complicating childbirth; F41.1 Generalized anxiety disorder; O99.89 Other specified diseases and conditions complicating pregnancy, childbirth and the puerperium; F90.9 Attention-deficit hyperactivity disorder, unspecified type; R00.0 Tachycardia, unspecified; F42.9 Obsessive-compulsive disorder, unspecified; Z37.0 Single live birth; Z91.5 Personal history of self-harm; Z3A.39 39 weeks gestation of pregnancy; Z23 Encounter for immunization
CPT/HCPCS: 80307; 81001; 82805; 85025; 86900; 86901; 87086; 90715; 99285; G0481; J2405; J2590; J3010; J7120